=== PATIENT | male | born 1940 | race Caucasian/White ===

== ENCOUNTER 2023-05-26 22:07 | Emergency (ER) | payer OTHER ==
[~2023-05-26] VITALS: Ht 167.6 cm; Wt 78.0 kg
[2023-05-26 22:13] VITALS: O2SAT 100
[2023-05-26] MEDS ORDERED: LIDOCAINE HCL/EPINEPHRINE 1%-EPI 1:100,000 20 ML VIAL INFIL ONE (22:30)
[2023-05-26] MEDS ORDERED: TRANEXAMIC ACID 1,000 MG in SODIUM CHLORIDE 0.9% 100 ML IV NR (23:00)
[2023-05-26] MEDS ORDERED: TRANEXAMIC ACID 1,000 MG/10 ML IV ONE (23:00)
[2023-05-26 23:11] LABS: BASOPHILS % 0.7 % (0.0-2.0); HEMATOCRIT. 37.2 % (42.0-52.0); LYMPHOCYTES % 22.2 % (20.0-50.0); MEAN CORPUSCULAR HEMOGLOBIN 30.3 pg (28.0-32.0); MEAN CORPUSCULAR HGB CONC 32.4 g/dL (31.0-37.0); MEAN CORPUSCULAR VOLUME 93.4 fL (80.0-94.0); MEAN PLATELET VOLUME 8.4 fl (7.4-10.4); MONOCYTES % 10.5 % (2.0-8.0); NEUTROPHILS % 59.6 % (40.0-76.0); PLATELET 106 x1000/uL (130-400); RED BLOOD CELL COUNT 3.98 mill/uL (4.7-6.1); RED CELL DISTRIBUTION WIDTH 17.2 % (11.6-14.6); WHITE BLOOD COUNT 5.6 x1000/uL (4.5-11.0)
[2023-05-26 23:16] LABS: CHLORIDE 98 mEq/L (98-107); INDEX HEMOLYSI 2 (1-3); INDEX ICTERIC 1 (1-4); INDEX LIPEMIC 1 (1-3); POTASSIUM 4.5 mEq/L (3.5-5.1); SODIUM 135 mEq/L (136-145)
[2023-05-26 23:19] LABS: INR 1.1; PROTHROMBIN TIME 11.5 sec (9.6-11.0)
[2023-05-26 23:25] LABS: ALANINE AMINOTRANSFERASE 21 IU/L (13-61); ALBUMIN 3.7 g/dL (3.4-5.0); ASPARTATE AMINOTRANSFERASE 28 IU/L (15-37); BILIRUBIN TOTAL 0.5 mg/dL (0.1-1.0); CALCIUM 9.3 mg/dL (8.5-10.1); CARBON DIOXIDE 29 mEq/L (21-32); CREATININE 4.4 mg/dL (0.6-1.3); GLUCOSE 108 mg/dL (70-105); PROTEIN TOTAL 7.8 g/dL (6.0-8.3); UREA NITROGEN BLOOD 18 mg/dL (7-21)
[2023-05-27] MEDS ORDERED: DIPHENHYDRAMINE 25MG CAPSULE PO ONE (00:15)
[2023-05-27 00:37] VITALS: BP 152/60; PULSE 70; RESP 16; TEMP 96.7
== END 2023-05-27 00:38 | disposition home or self-care (01) ==
LOC: ER 22:34
DX: T82.838A Hemorrhage due to vascular prosthetic devices, implants and grafts, initial encounter (principal); E78.00 Pure hypercholesterolemia, unspecified; Z99.2 Dependence on renal dialysis; E11.22 Type 2 diabetes mellitus with diabetic chronic kidney disease; N18.6 End stage renal disease; Z98.890 Other specified postprocedural states
CPT/HCPCS: 99283; 80053; 85025; 85610; 86850; 86900; 86901; 36415; J3490; J7050; Q0163

== ENCOUNTER 2024-04-03 05:43 | Emergency (ER) | payer OTHER ==
[~2024-04-03] VITALS: Ht 165.1 cm; Wt 75.0 kg
[2024-04-03 06:08] VITALS: O2SAT 98
[2024-04-03] MEDS: TRANEXAMIC ACID 1,000MG/10ML TP ONE (06:48)
[2024-04-03 08:03] VITALS: BP 160/84; PULSE 59; RESP 14; TEMP 98.2
== END 2024-04-03 08:14 | disposition home or self-care (01) ==
LOC: ER 05:43
DX: T82.510A Breakdown (mechanical) of surgically created arteriovenous fistula, initial encounter (principal); E78.00 Pure hypercholesterolemia, unspecified; E11.9 Type 2 diabetes mellitus without complications
CPT/HCPCS: 99283